=== PATIENT | female | born 1965 | race African-American/Black ===

== ENCOUNTER 2018-04-11 11:55 | Emergency (ER) | payer MEDICAID ==
[2018-04-11 12:03] VITALS: BP 129/84
--- NOTE | 2018-04-11 13:06 | EDPHY ---
General Time Seen by Provider: 04/11/18 13:02 Narrative: CHIEF COMPLAINT: Levothyroxine refill HISTORY OF PRESENT ILLNESS: Patient presents per private vehicle with complaints of medication refill she states that she has history hypothyroid and ran out of her Synthroid the last 3 days. She has no symptoms any kind. She has recently moved to [place] and is not yet established with a physician. She is requesting a note to get her through to follow up with a new physician. She denies any chest pain, fever, sweating, constipation or any complaints of abdominal pain. She is only requesting a refill. No modifying factors. No other associated complaints MEDICAL/SURGICAL/SOCIAL HISTORY: Hypothyroid. Nonsmoker. [employer] student. REVIEW OF SYSTEMS: Ten systems reviewed and are negative unless otherwise noted in the HPI EXAMINATION: Vitals: Triage VS reviewed General Appearance: Alert, no distress. Well appearing Head: normocephalic, atraumatic Cardiovascular: Regular rhythm. No murmur. Good signs of perfusion Neurological: A&O, sensory symmetric, strength symmetric Skin: Warm and dry, no rash Extremities: Nontender, no pedal edema DIFFERENTIAL DIAGNOSES: Including but not limited to laceration, laceration complication, laceration foreign body, laceration with deep tissue injury MDM: 1:05 p.m. Visit for medication refill request. She has no complaints of any kind and is well-appearing. Vital signs limits. She has no murmur. I have written a prescription of her Synthroid refill for 30 days. I provided the on-call primary care physician for to establish with. We discussed ED precautions. She is well-appearing and very thankful. Discharged home stable condition SUPERVISION: This patient was independently evaluated without direct involvement of or examination by the attending physician. - History Smoking Status: Heavy smoker - Objective Vital Signs: Initial Vital Signs Temperature (C) 98.1 F 04/11/18 12:01 Heart Rate 90 04/11/18 12:01 Respiratory Rate 18 04/11/18 12:01 Blood Pressure 129/84 H 04/11/18 12:01 O2 Sat (%) 98 04/11/18 12:01 O2 Delivery Mode Room Air Allergies/Adverse Reactions: prochlorperazine [From Compazine] Allergy (Verified 04/11/18 12:00) Home Medications: Medication Instructions Recorded Levothyroxine 0.15 mg PO DAILY #30 04/11/18 Departure - Departure Disposition: Home, Routine, Self-Care Clinical Impression: Encounter for medication refill Hypothyroid Qualifiers: Hypothyroidism type: unspecified Qualified Code(s): E03.9 - Hypothyroidism, unspecified Condition: Good Instructions: Hypothyroidism (ED) Additional Instructions: 1. Levothyroxine as prescribed for 30 days. 2. Contact the on-call primary care physician to establish further care and for future refills Referrals: Elliot Kang MD [Medical Doctor] - As per Instructions
== END 2018-04-11 13:16 | disposition home or self-care (01) ==
DX: Z76.0 Encounter for issue of repeat prescription (principal); E03.9 Hypothyroidism, unspecified